=== PATIENT | female | born 1990 ===

== ENCOUNTER 2020-07-13 07:41 | Day surgery (SDC) | payer MEDICAID ==
[2020-07-13] MEDS ORDERED: LACTATED RINGERS 1,000 ML ONE (09:16)
[2020-07-13] MEDS ORDERED: ONDANSETRON 4 MG/2 ML INJ IV PRN (09:17)
[2020-07-13] MEDS ORDERED: HYDROmorphone 1 MG/1 ML INJ IV PRN ×2 (09:17)
--- NOTE | 2020-07-13 09:17 | Anesthesia Consultation ---
Anesthesia Consult and Med Hx Date of service: 07/13/20 - Airway Anesthetic Teeth Evaluation: Good ROM Head & Neck: Adequate Mental/Hyoid Distance: Adequate Mallampati Class: Class I Intubation Access Assessment: Good - Pre-Operative Health Status ASA Pre-Surgery Classification: ASA1 Proposed Anesthetic Plan: General - Pulmonary Hx Smoking: No - Cardiovascular System Hx Hypertension: No - Central Nervous System Hx Psychiatric Problems: No - Gastrointestinal Hx Gastroesophageal Reflux Disease: No - Endocrine Hx Renal Disease: Yes (Stones) - Hematic Hx Anemia: Yes (2 mos ago following delivery) - Other Systems Hx Alcohol Use: Yes (Occas) Hx Cancer: No Hx Obesity: No
--- NOTE | 2020-07-13 09:17 | Anesthesia Day of Surgery ---
Anesthesia Day of Surgery - Day of Surgery Patient Examined: Yes Patient H&P Reviewed: Yes Patient is NPO: Yes
[2020-07-13] MEDS ORDERED: LACTATED RINGERS 1,000 ML IV SCH (09:30)
[2020-07-13] MEDS ORDERED: MIDAZOLAM 2 MG/2 ML INJ IV NR (10:00)
[2020-07-13] MEDS ORDERED: ceFAZolin/STERILE WATER 2 GM/20 ML SYRINGE IV NR (10:00)
[2020-07-13 10:14] LABS: Hematocrit 34.9 % (30.3-42.9)
[2020-07-13] MEDS ORDERED: LIDOCAINE MPF (2%) 20 MG/1 ML VIAL 5 ML ONE (10:40)
[2020-07-13] MEDS ORDERED: propofoL 200 MG/20 ML VIAL IV ONE (10:40)
[2020-07-13] MEDS ORDERED: HYDROmorphone 1 MG/1 ML INJ ONE (10:40)
[2020-07-13] MEDS ORDERED: ONDANSETRON 4 MG/2 ML INJ ONE (11:01)
--- NOTE | 2020-07-13 11:05 | Post Operative Note ---
Date of procedure: 07/13/20 Pre-op diagnosis: bilat ureteral stones Post-op diagnosis: same Findings: as above Procedure: left eswl Anesthesia: YOUNG Surgeon: CLARE STEWART Estimated blood loss: none Pathology: none Condition: stable Disposition: PACU
--- NOTE | 2020-07-13 11:06 | Discharge Summary ---
Short Stay Discharge Plan Activity: other (no straining ) Weight Bearing Status: Full Weight Bearing Diet: low fat, low cholesterol Special Instructions: other (inc fluids ) Follow up with: PRIMARY CARE, [Primary Care Provider] - 7 Days CLARE STEWART MD [Staff Physician] - 7 Days
--- NOTE | 2020-07-13 12:03 | Operative Report ---
DATE OF SURGERY: 07/13/2020 PREOPERATIVE DIAGNOSES: Right distal ureteral stone, left upper ureteral stone. POSTOPERATIVE DIAGNOSES: Right distal ureteral stone, left upper ureteral stone. PROCEDURE: Left ESWL with previously placed double-J stent. FINDINGS: This is a woman who presented at another institution for another urologist and had bilateral stents placed for bilateral ureteral stones. Has a right distal stone in the left upper ureteral stone. She now presents for staged treatment. DESCRIPTION OF PROCEDURE: The patient was brought to the operating room and placed on the operating table. Following induction of anesthesia, the left side was visualized the stone quite well. Lithotripsy was done and started at 1 kV increased to maximum of 8 kV. 2500 shocks were given since it was at the level of the lower pole. We did a renal pause. The stone was well fragmented. We will bring her back for ureteroscopy, stent removal on the left and extraction of the stone on the right. The patient tolerated the procedure well and brought to recovery in stable condition. TID: [id number] RECEIPT: [id number] STEPHANI/CATHY
[2020-07-13 12:23] VITALS: BP 123/62
--- NOTE | 2020-07-13 16:11 | Post Anesthesia Evaluation ---
- Post Anesthesia Evaluation Patient Participated: Yes Airway Patent: Yes Stable Respiratory Function: Yes Nausea/Vomiting: No Temp > 96.8F: Yes Pain Manageable: Yes Adequeate Hydration: Yes Anesthesia Complications: No Block Receding Appropriately: Not Applicable Patient on Ventilator: No
== END 2020-07-13 13:05 | disposition home or self-care (01) ==
LOC: OR 07:41
PROVIDERS: ATTEND Urology
DX: N20.1 Calculus of ureter (principal); Z88.5 Allergy status to narcotic agent; Z90.49 Acquired absence of other specified parts of digestive tract; Z72.89 Other problems related to lifestyle; Z98.890 Other specified postprocedural states; Z86.2 Personal history of diseases of the blood and blood-forming organs and certain disorders involving the immune mechanism
CPT/HCPCS: 36415; 50590; 81025; 85014; 85018; J0690; J1170; J2250; J2405; J2704; J7120

== ENCOUNTER 2020-07-27 10:13 | Day surgery (SDC) | payer MEDICAID ==
[~2020-07-27 10:13] MED LIST: IOHEXOL 300 MG/ML 50ML IV ONE; SODIUM CHLORIDE 0.9% IRRIG SOLN 2000 ML IR ONE; WATER FOR IRRIG STERILE 1,500 ML BOTTLE IR ONE
[2020-07-27] MEDS ORDERED: LACTATED RINGERS 1,000 ML ONE (11:02)
[2020-07-27] MEDS ORDERED: LACTATED RINGERS 1,000 ML IV SCH (11:45)
--- NOTE | 2020-07-27 11:55 | Anesthesia Day of Surgery ---
Anesthesia Day of Surgery - Day of Surgery Patient Examined: Yes Patient H&P Reviewed: Yes Patient is NPO: Yes
[2020-07-27] MEDS ORDERED: HYDROmorphone 1 MG/1 ML INJ IV PRN ×2 (11:57)
[2020-07-27] MEDS ORDERED: ONDANSETRON 4 MG/2 ML INJ IV PRN (11:57)
--- NOTE | 2020-07-27 11:57 | Anesthesia Consultation ---
Anesthesia Consult and Med Hx Date of service: 07/27/20 - Airway Anesthetic Teeth Evaluation: Good ROM Head & Neck: Adequate Mental/Hyoid Distance: Adequate Mallampati Class: Class II Intubation Access Assessment: Good - Pre-Operative Health Status ASA Pre-Surgery Classification: ASA1 Proposed Anesthetic Plan: General - Pulmonary Hx Smoking: No Hx Sleep Apnea: No (BEN PRE SCREEN NEGATIVE) - Cardiovascular System Hx Hypertension: No - Central Nervous System Hx Back Pain: Yes Hx Psychiatric Problems: No - Gastrointestinal Hx Gastroesophageal Reflux Disease: No - Endocrine Hx Renal Disease: Yes (Stones) - Hematic Hx Anemia: Yes (2 mos ago following delivery/ RESOLVED) - Other Systems Hx Alcohol Use: Yes (Occas) Hx Cancer: No Hx Obesity: No - Additional Comments Anesthesia Medical History Comments: Here [id number]
[2020-07-27] MEDS ORDERED: ceFAZolin/STERILE WATER 2 GM/20 ML SYRINGE IV NR (12:00)
[2020-07-27] MEDS ORDERED: LIDOCAINE MPF (2%) 20 MG/1 ML VIAL 5 ML ONE (12:02)
[2020-07-27] MEDS ORDERED: propofoL 200 MG/20 ML VIAL IV ONE (12:02)
[2020-07-27] MEDS ORDERED: fentaNYL 100 MCG/2 ML INJ ONE (12:04)
[2020-07-27] MEDS ORDERED: PHENYLEPHRINE/NS 1,000 MCG/10 ML SYRINGE (OR USE) IV ONE (12:28)
[2020-07-27] MEDS ORDERED: FUROSEMIDE 40 MG/4 ML INJ ONE (12:41)
[2020-07-27] MEDS ORDERED: KETOROLAC 30 MG/1 ML INJ ONE (12:43)
[2020-07-27] MEDS ORDERED: ONDANSETRON 4 MG/2 ML INJ ONE (12:43)
--- NOTE | 2020-07-27 13:03 | Post Operative Note ---
Date of procedure: 07/27/20 Pre-op diagnosis: bilat ureteral stones Post-op diagnosis: same Findings: as above Procedure: cysto r ureteroscopy stent removal bilat Anesthesia: GETA Surgeon: CLARE STEWART Estimated blood loss: none Pathology: none Condition: stable Disposition: PACU
--- NOTE | 2020-07-27 13:03 | Operative Report ---
DATE OF SURGERY: 07/27/2020 PREOPERATIVE DIAGNOSIS: Bilateral ureteral stones post-lithotripsy on the left. POSTOPERATIVE DIAGNOSIS: Bilateral ureteral stones post-lithotripsy on the left. PROCEDURE: Cystoscopy, removal of J stents, right ureteroscopy, retrograde. SURGEON: Wilber Brown MD ANESTHESIA: General. FINDINGS: This is a woman who had a left upper ureteral stone treated with lithotripsy, has had bilateral stents placed in [facility] and now presents for treatment. She had a right distal stone. DESCRIPTION OF PROCEDURE: The patient was brought to the operating room and placed on the operating table. Following induction of anesthesia, placed in lithotomy position, prepped and draped in usual sterile fashion. Cystourethroscopy showed the left stent, which was removed. A retrograde on the left shows probably a little mild narrowing in the upper ureter, but good drainage. On the right side, we withdrew the stent, placed a wire. Ureteroscopy was carried out twice at the lower ureter. We even went up to follow it and did not see any stone. There was excellent drainage. There was some mild hydroureteral dilatation was completely drained. The patient tolerated the procedure well. Both stents were left out. She was brought to recovery in stable condition. TID: [id number] RECEIPT: [id number] [facility]/STD
--- NOTE | 2020-07-27 13:04 | Discharge Summary ---
Short Stay Discharge Plan Activity: other (no straining ) Weight Bearing Status: Full Weight Bearing Diet: regular Special Instructions: other (inc fluids ) Follow up with: PRIMARY CARE, [Primary Care Provider] - 7 Days CLARE STEWART MD [Staff Physician] - 14 Days
--- NOTE | 2020-07-27 14:52 | Fluoroscopy Report ---
Retrograde urography INDICATION: Ureteral calculus IMPRESSION: Indwelling bilateral ureteral stents are present on the initial images and then removed Fluoroscopy time: 40 seconds. Fluoroscopic images: 4. Signer Name: Trevor Aranda MD Signed: 07/27/2020 2:48 PM Workstation Name: [id number]
[2020-07-27 20:22] VITALS: BP 119/67
== END 2020-07-27 10:14 | disposition home or self-care (01) ==
LOC: OR 10:13
PROVIDERS: ATTEND Urology
DX: N20.1 Calculus of ureter (principal); Z88.5 Allergy status to narcotic agent; Z79.899 Other long term (current) drug therapy; Z90.49 Acquired absence of other specified parts of digestive tract; Z87.440 Personal history of urinary (tract) infections; Z72.89 Other problems related to lifestyle; Z98.890 Other specified postprocedural states; Z86.2 Personal history of diseases of the blood and blood-forming organs and certain disorders involving the immune mechanism
CPT/HCPCS: 52351; 74420; 81025; A4217; C1758; C1769; J0690; J1885; J1940; J2370; J2405; J2704; J3010; J7120; Q9967

== ENCOUNTER 2021-08-28 23:16 | Emergency (ER) | payer MEDICAID ==
[2021-08-29] MEDS ORDERED: ONDANSETRON 4 MG/2 ML INJ IV ONE (00:21)
[2021-08-29] MEDS ORDERED: KETOROLAC 30 MG/1 ML INJ IV ONE (00:21)
[2021-08-29] MEDS ORDERED: SODIUM CHLORIDE 0.9% 1000 ML 1,000 ML IV ONE (00:21)
--- NOTE | 2021-08-29 01:16 | Emergency Department Report ---
ED General Adult HPI - General Chief complaint: Abdominal Pain Stated complaint: KIDNEY STONES Time Seen by Provider: 08/29/21 00:18 Source: EMS Mode of arrival: Stretcher Limitations: No Limitations - History of Present Illness Initial comments: Is a 30-year-old female who presents for right flank pain radiating suprapubic x1 week. Patient denies fevers or chills no nausea vomiting patient endorses history of renal stone patient does endorse dysuria frequency and urgency. There is been no fever no chills patient denies sexual contacts. - Related Data Home Medications Medication Instructions Recorded Confirmed Last Taken Ibuprofen 600 mg PO PRN 07/19/20 07/19/20 Unknown Previous Rx's Medication Instructions Recorded Last Taken Type Ketorolac [Toradol] 10 mg PO Q6H PRN #12 tab 08/29/21 Unknown Rx levoFLOXacin [Levaquin TAB] 500 mg PO QDAY 7 Days #7 tablet 08/29/21 Unknown Rx Allergies Allergy/AdvReac Type Severity Reaction Status Date / Time morphine Allergy Hives, itch Verified 07/11/20 15:53 ED Review of Systems ROS: Stated complaint: KIDNEY STONES Other details as noted in HPI Constitutional: denies: chills, fever Eyes: denies: eye pain, eye discharge, vision change ENT: denies: ear pain, throat pain Respiratory: denies: cough, shortness of breath, wheezing Cardiovascular: denies: chest pain, palpitations Endocrine: no symptoms reported Gastrointestinal: denies: abdominal pain, nausea, vomiting, diarrhea Genitourinary: denies: urgency, dysuria, discharge Musculoskeletal: denies: back pain, joint swelling, arthralgia Skin: denies: rash, lesions Neurological: as per HPI Psychiatric: denies: anxiety, depression ED Past Medical Hx - Past Medical History Hx Hypertension: No Hx Renal Disease: Yes (Stones) Hx Headaches / Migraines: Yes (4 years ago) Hx Kidney Stones: Yes (Had stents inserted 05/2020) Hx HIV: No - Surgical History Hx Cholecystectomy: Yes - Social History Smoking Status: Unknown if ever smoked - Medications Home Medications: Home Medications Medication Instructions Recorded Confirmed Last Taken Type Ibuprofen 600 mg PO PRN 07/19/20 07/19/20 Unknown History Ketorolac [Toradol] 10 mg PO Q6H PRN #12 tab 08/29/21 Unknown Rx levoFLOXacin [Levaquin TAB] 500 mg PO QDAY 7 Days #7 tablet 08/29/21 Unknown Rx ED Physical Exam - General Limitations: No Limitations General appearance: alert, in no apparent distress - Head Head exam: Present: atraumatic, normocephalic, normal inspection - Eye Eye exam: Present: normal appearance, PERRL, EOMI Pupils: Present: normal accommodation - ENT ENT exam: Present: mucous membranes moist, TM's normal bilaterally, normal external ear exam - Neck Neck exam: Present: normal inspection, full ROM. Absent: tenderness, lymphadenopathy - Respiratory Respiratory exam: Present: normal lung sounds bilaterally. Absent: respiratory distress, wheezes, stridor - Cardiovascular Cardiovascular Exam: Present: regular rate, normal rhythm, normal heart sounds. Absent: systolic murmur, diastolic murmur, rubs, gallop - GI/Abdominal GI/Abdominal exam: Present: soft, tenderness (Right eye), normal bowel sounds. Absent: distended, guarding, rebound, rigid - Rectal Rectal exam: Present: deferred - External exam: Present: normal external exam Speculum exam: Present: other - Extremities Exam Extremities exam: Present: normal inspection (Deferred per patient), full ROM, normal capillary refill. Absent: tenderness, calf tenderness - Back Exam Back exam: Present: normal inspection, full ROM. Absent: CVA tenderness (R), CVA tenderness (L) - Neurological Exam Neurological exam: Present: alert, oriented X3, CN II-XII intact, normal gait, reflexes normal. Absent: motor sensory deficit - Psychiatric Psychiatric exam: Present: normal affect, normal mood, anxious - Skin Skin exam: Present: warm, dry, intact, normal color. Absent: rash ED Course Vital Signs 08/28/21 08/29/21 08/29/21 23:41 01:25 01:26 Temperature 98.1 F Pulse Rate 78 87 Respiratory 18 18 Rate Blood Pressure 120/78 Blood Pressure 135/66 [Left] O2 Sat by Pulse 19 L 99 Oximetry ED Medical Decision Making - Lab Data Result diagrams: 08/29/21 01:15 08/29/21 01:15 CT scan abdomen pelvis are solid 4 mm nonobstructing renal stone, UA noted CBC and CMP noted. Symptoms are improved with medications given in ED plan discharge home, follow-up with urology. Follow-up with primary care doctor. Return to emergency department should symptoms worsen. Patient verbalized agreement and understanding of discharge plan. Patient DC'd home in stable condition at this time. There is currently no fevers no chills patient is tolerating p.o. intake. Critical care attestation.: If time is entered above; I have spent that time in minutes in the direct care of this critically ill patient, excluding procedure time. ED Disposition Clinical Impression: Kidney stone UTI (urinary tract infection) Qualifiers: Urinary tract infection type: acute cystitis Hematuria presence: without hematuria Qualified Code(s): N30.00 - Acute cystitis without hematuria Disposition: HOME / SELF CARE / HOMELESS Is pt being admited?: No Does the pt Need Aspirin: No Condition: Stable Instructions: Abdominal Pain (ED), Kidney Stones, Urinary Tract Infection, Adult, [id number] Additional Instructions: Take medications as prescribed, follow-up with urology in 2 to 3 days. Follow- up with your primary care doctor in 2 to 3 days. Return to emergency department should symptoms worsen. Prescriptions: levoFLOXacin [Levaquin TAB] 500 mg PO QDAY 7 Days #7 tablet Ketorolac [Toradol] 10 mg PO Q6H PRN #12 tab PRN Reason: Pain Referrals: MARIA ANTONIA ONEAL MD [Staff Physician] - 3-5 Days COLE COELHO MD [Staff Physician] - 3-5 Days Forms: Work/School Release Form(ED) Time of Disposition: 04:44
[2021-08-29 01:50] LABS: Basophils % (Auto) 0.2 % (0.0-1.8); Eosinophils # (Auto) 0.1 K/mm3 (0.0-0.4); Eosinophils % (Auto) 0.5 % (0.0-4.3); Hematocrit 35.6 % (30.3-42.9); Hemoglobin 11.4 gm/dl (10.1-14.3); Lymphocytes # (Auto) 1.5 K/mm3 (1.2-5.4); Lymphocytes % (Auto) 14.1 % (13.4-35.0); Mean Corpuscular HGB Conc 32 % (30-34); Mean Corpuscular Volume 82 fl (79-97); Monocytes # (Auto) 0.9 K/mm3 (0.0-0.8); Monocytes % (Auto) 8.6 % (0.0-7.3); Platelet Count 279 K/mm3 (140-440); Red Blood Count 4.36 M/mm3 (3.65-5.03)
[2021-08-29 02:15] LABS: Alanine Aminotransferase 43 units/L (7-56); Albumin 4.2 g/dL (3.9-5); Blood Urea Nitrogen 8 mg/dL (7-17); Calcium 8.8 mg/dL (8.4-10.2); Hemolysis Index 12
[2021-08-29 02:44] LABS: BUN/Creatinine Ratio 13
[2021-08-29 02:49] LABS: HCG Qualitative,Urine Negative (Negative)
[2021-08-29 02:52] LABS: Bacteria,Urine 1+ /HPF (Negative); Mucus,Urine 1+ /HPF
[2021-08-29 02:53] LABS: Bilirubin,Urine Negative (Negative); Blood,Urine Large (Negative); Color,Urine Yellow (Yellow); WBC,Urine > 182.0 /HPF (0.0-6.0)
[2021-08-29] MEDS ORDERED: cefTRIAXone/NS 1 GM/50 ML 1 GM/50 ML BAG IV ONE (03:11)
--- NOTE | 2021-08-29 03:59 | Cat Scan Report ---
CT ABDOMEN AND PELVIS WITHOUT CONTRAST INDICATION / CLINICAL INFORMATION: RIGHT sided flank pain that radiates to suprapubic area x 1 week.. TECHNIQUE: Axial CT images were obtained through the abdomen and pelvis without IV contrast. All CT scans at this location are performed using CT dose reduction for ALARA by means of automated exposure control. COMPARISON: None available. FINDINGS: LOWER CHEST: No significant abnormality LIVER: No significant abnormality GALLBLADDER/BILIARY TREE: Cholecystectomy. PANCREAS: No significant abnormality SPLEEN: No significant abnormality ADRENALS: No significant abnormality RIGHT KIDNEY / URETER: 2 mm nonobstructive right renal stone. There is no urolithiasis. Prominent uro thelial thickening and periureteral stranding. No significant hydronephrosis. LEFT KIDNEY / URETER: No significant abnormality. No urolithiasis or hydronephrosis. URINARY BLADDER: Bladder is partially compressed with mild wall thickening. REPRODUCTIVE ORGANS: IUD. No significant abnormality. STOMACH / BOWEL: Small bowel is normal in caliber. The colon is unremarkable. The appendix is normal in caliber. LYMPH NODES: No significant adenopathy. VASCULATURE: No significant abnormality. OTHER: No free air, free fluid, or focal fluid collection is identified. SKELETAL SYSTEM: No acute osseous findings. IMPRESSION: 1. Mild bladder wall thickening with right asymmetric urothelial thickening and periureteral strandin g without ureteral stone or hydronephrosis. Findings are most likely related to urinary tract infecti on. 2. 2 mm nonobstructing right renal stone. 3. Other incidental findings as above. Signer Name: Tom Brady MD Signed: 08/29/2021 3:55 AM Workstation Name: [id number]
[2021-08-29 05:58] VITALS: BP 110/60
== END 2021-08-29 05:55 | disposition home or self-care (01) ==
LOC: ED 23:16
DX: N20.0 Calculus of kidney (principal); N39.0 Urinary tract infection, site not specified; G43.909 Migraine, unspecified, not intractable, without status migrainosus; Z98.890 Other specified postprocedural states; Z88.5 Allergy status to narcotic agent
CPT/HCPCS: 36415; 74176; 80053; 81001; 81025; 84702; 85025; 96361; 96365; 96375; 99284; J0696; J1885; J2405; J7030